=== PATIENT | male | born 1985 | race Caucasian/White ===

== ENCOUNTER 2017-07-12 16:39 | Emergency (ER) | payer SELFPAY ==
[~2017-07-12] VITALS: Ht 165.1 cm; Wt 65.0 kg
[2017-07-12 18:20] LABS: CHLORIDE 109 mEq/L (98-107)
[2017-07-12 18:21] LABS: BASOPHILS % 0.3 % (0.0-2.0); HEMATOCRIT. 44.1 % (42.0-52.0); HEMOGLOBIN. 15.4 g/dL (14.0-18.0); LYMPHOCYTES % 28.6 % (20.0-50.0); MEAN CORPUSCULAR HEMOGLOBIN 33.1 pg (28.0-32.0); MEAN CORPUSCULAR VOLUME 94.9 fL (80.0-94.0); MEAN PLATELET VOLUME 9.2 fl (7.4-10.4); MONOCYTES % 7.8 % (2.0-8.0); NEUTROPHILS % 59.3 % (40.0-76.0); PLATELET 198 x1000/uL (130-400); RED BLOOD CELL COUNT 4.65 mill/uL (4.7-6.1); RED CELL DISTRIBUTION WIDTH 13.4 % (11.6-14.6)
[2017-07-12 18:26] LABS: ETHANOL BLOOD 215 mg/dL
[2017-07-12 20:09] LABS: CLARITY URINE CLEAR (CLEAR); COLOR URINE YELLOW (YELLOW); KETONES URINE TRACE (NEGATIVE); LEUKOCYTE ESTERASE URINE NEGATIVE (NEGATIVE); NITRITE URINE NEGATIVE (NEGATIVE); OCCULT BLOOD URINE NEGATIVE (NEGATIVE); PROTEIN URINE NEGATIVE (NEGATIVE); SPECIFIC GRAVITY URINE 1.012 (1.005-1.030); UROBILINOGEN URINE 0.2 E.U./dL (0.2-1.0)
[2017-07-12] MEDS ORDERED: SODIUM CHLORIDE 0.9% 1,000 ML IV ONE (20:46)
[2017-07-12 22:33] LABS: *BARBITURATES SCREEN URINE NEGATIVE (NEGATIVE)
[2017-07-12 22:34] LABS: *BENZODIAZEPINES SCREEN URINE NEGATIVE (NEGATIVE); METHADONE URINE SCREEN NEGATIVE (NEGATIVE)
[2017-07-12 22:35] LABS: *AMPHETAMINES SCREEN URINE PRESUMTIVE POSITIVE (NEGATIVE); CANNABINOID URINE SCREEN NEGATIVE (NEGATIVE); OPIATES URINE SCREEN NEGATIVE (NEGATIVE); PHENCYCLIDINE URINE SCREEN NEGATIVE (NEGATIVE)
[2017-07-12 22:43] LABS: *COCAINE SCREEN URINE NEGATIVE (NEGATIVE)
[2017-07-13 03:32] VITALS: BP 112/62
== END 2017-07-13 03:35 | disposition home or self-care (01) ==
LOC: ER 16:47
DX: F10.129 Alcohol abuse with intoxication, unspecified (principal); F41.0 Panic disorder [episodic paroxysmal anxiety]; F15.10 Other stimulant abuse, uncomplicated
CPT/HCPCS: 36415; 80053; 80305; 80307; 80329; 81003; 85025; 93005; 96360; 96361; 99285; G0482; J7030

== ENCOUNTER 2020-07-11 20:29 | Emergency (ER) | payer MEDICAID ==
[~2020-07-11] VITALS: Ht 157.5 cm; Wt 73.0 kg
[2020-07-11 21:42] LABS: CLARITY URINE CLEAR (CLEAR); COLOR URINE YELLOW (YELLOW); KETONES URINE NEGATIVE (NEGATIVE); LEUKOCYTE ESTERASE URINE NEGATIVE (NEGATIVE); NITRITE URINE NEGATIVE (NEGATIVE); OCCULT BLOOD URINE NEGATIVE (NEGATIVE); PROTEIN URINE NEGATIVE (NEGATIVE); SPECIFIC GRAVITY URINE 1.013 (1.005-1.030); UROBILINOGEN URINE 0.2 E.U./dL (0.2-1.0)
[2020-07-11 21:48] LABS: BASOPHILS % 0.6 % (0.0-2.0); EOSINOPHILS % 2.6 % (0.0-5.0); HEMATOCRIT. 45.4 % (42.0-52.0); HEMOGLOBIN. 15.8 g/dL (14.0-18.0); LYMPHOCYTES % 41.9 % (20.0-50.0); MEAN CORPUSCULAR HEMOGLOBIN 33.9 pg (28.0-32.0); MEAN CORPUSCULAR VOLUME 97.2 fL (80.0-94.0); MEAN PLATELET VOLUME 8.5 fl (7.4-10.4); MONOCYTES % 7.3 % (2.0-8.0); NEUTROPHILS % 47.6 % (40.0-76.0); PLATELET 158 x1000/uL (130-400); RED BLOOD CELL COUNT 4.67 mill/uL (4.7-6.1); RED CELL DISTRIBUTION WIDTH 13.3 % (11.6-14.6)
[2020-07-11 21:53] LABS: *AMPHETAMINES SCREEN URINE NEGATIVE (NEGATIVE); *BARBITURATES SCREEN URINE NEGATIVE (NEGATIVE); *BENZODIAZEPINES SCREEN URINE NEGATIVE (NEGATIVE); *COCAINE SCREEN URINE NEGATIVE (NEGATIVE); METHADONE URINE SCREEN NEGATIVE (NEGATIVE)
[2020-07-11 21:54] LABS: CANNABINOID URINE SCREEN NEGATIVE (NEGATIVE); OPIATES URINE SCREEN NEGATIVE (NEGATIVE); PHENCYCLIDINE URINE SCREEN NEGATIVE (NEGATIVE)
[2020-07-11 21:55] LABS: CHLORIDE 106 mEq/L (98-107)
[2020-07-11 21:59] LABS: ETHANOL BLOOD 157 mg/dL
[2020-07-12 01:04] VITALS: BP 124/80
== END 2020-07-12 01:07 | disposition home or self-care (01) ==
LOC: ER 20:29
DX: R44.0 Auditory hallucinations (principal); F14.10 Cocaine abuse, uncomplicated; F15.10 Other stimulant abuse, uncomplicated
CPT/HCPCS: 36415; 80053; 80305; 80320; 81003; 85025; 99283; G0480

== ENCOUNTER 2020-07-17 20:02 | Emergency (ER) | payer MEDICAID ==
[~2020-07-17] VITALS: Ht 157.5 cm; Wt 71.1 kg
[2020-07-17 20:38] LABS: CLARITY URINE CLEAR (CLEAR); COLOR URINE YELLOW (YELLOW); KETONES URINE NEGATIVE (NEGATIVE); LEUKOCYTE ESTERASE URINE NEGATIVE (NEGATIVE); NITRITE URINE NEGATIVE (NEGATIVE); OCCULT BLOOD URINE NEGATIVE (NEGATIVE); PH URINE 6.5 (4.5-8.0); PROTEIN URINE NEGATIVE (NEGATIVE); SPECIFIC GRAVITY URINE 1.005 (1.005-1.030); UROBILINOGEN URINE 0.2 E.U./dL (0.2-1.0)
[2020-07-17 23:12] LABS: BASOPHILS % 0.6 % (0.0-2.0); EOSINOPHILS % 2.4 % (0.0-5.0); HEMATOCRIT. 45.3 % (42.0-52.0); HEMOGLOBIN. 15.4 g/dL (14.0-18.0); LYMPHOCYTES % 27.1 % (20.0-50.0); MEAN CORPUSCULAR HEMOGLOBIN 33.6 pg (28.0-32.0); MEAN CORPUSCULAR VOLUME 98.9 fL (80.0-94.0); MEAN PLATELET VOLUME 8.9 fl (7.4-10.4); MONOCYTES % 7.3 % (2.0-8.0); NEUTROPHILS % 62.6 % (40.0-76.0); PLATELET 148 x1000/uL (130-400); RED BLOOD CELL COUNT 4.58 mill/uL (4.7-6.1); RED CELL DISTRIBUTION WIDTH 13.5 % (11.6-14.6)
[2020-07-17 23:18] LABS: CHLORIDE 107 mEq/L (98-107)
[2020-07-17] MEDS ORDERED: FAMO-135 PO (23:38)
[2020-07-18 00:25] VITALS: BP 125/76
== END 2020-07-18 00:28 | disposition home or self-care (01) ==
LOC: ER 20:02
DX: R10.31 Right lower quadrant pain (principal); K14.8 Other diseases of tongue; F14.10 Cocaine abuse, uncomplicated; F15.10 Other stimulant abuse, uncomplicated
CPT/HCPCS: 36415; 80053; 81003; 85025; 93005; 99284

== ENCOUNTER 2020-08-19 02:09 | Emergency (ER) | payer MEDICAID ==
[~2020-08-19] VITALS: Ht 167.6 cm; Wt 73.0 kg
[~2020-08-19 02:09] MED LIST: FAMO-135 PO
[2020-08-19 04:12] VITALS: BP 138/95
== END 2020-08-19 04:12 | disposition home or self-care (01) ==
LOC: ER 02:09
DX: F10.129 Alcohol abuse with intoxication, unspecified (principal); R10.9 Unspecified abdominal pain; Y90.9 Presence of alcohol in blood, level not specified
CPT/HCPCS: 99281

== ENCOUNTER 2020-09-17 22:36 | Emergency (ER) | payer SELFPAY ==
[~2020-09-17] VITALS: Ht 160 cm; Wt 66.0 kg
[2020-09-17 23:23] VITALS: BP 145/85
== END 2020-09-18 03:16 | disposition left against medical advice (07) ==
LOC: ER 22:36
DX: Z53.21 Procedure and treatment not carried out due to patient leaving prior to being seen by health care provider (principal)

== ENCOUNTER 2021-08-22 00:41 | Emergency (ER) | payer MEDICAID ==
[~2021-08-22] VITALS: Ht 160 cm; Wt 79.0 kg
[2021-08-22 01:30] LABS: BASOPHILS % 0.6 % (0.0-2.0); EOSINOPHILS % 1.6 % (0.0-5.0); HEMATOCRIT. 45.8 % (42.0-52.0); HEMOGLOBIN. 15.9 g/dL (14.0-18.0); LYMPHOCYTES % 32.9 % (20.0-50.0); MEAN CORPUSCULAR VOLUME 98.3 fL (80.0-94.0); MEAN PLATELET VOLUME 8.6 fl (7.4-10.4); MONOCYTES % 8.7 % (2.0-8.0); NEUTROPHILS % 56.2 % (40.0-76.0); PLATELET 143 x1000/uL (130-400); RED BLOOD CELL COUNT 4.66 mill/uL (4.7-6.1); RED CELL DISTRIBUTION WIDTH 13.5 % (11.6-14.6)
[2021-08-22 01:35] LABS: CHLORIDE 109 mEq/L (98-107)
[2021-08-22 01:47] LABS: ETHANOL BLOOD 283 mg/dL
[2021-08-22 02:22] LABS: *AMPHETAMINES SCREEN URINE NEGATIVE (NEGATIVE); *BARBITURATES SCREEN URINE NEGATIVE (NEGATIVE); *BENZODIAZEPINES SCREEN URINE NEGATIVE (NEGATIVE); *COCAINE SCREEN URINE NEGATIVE (NEGATIVE); CANNABINOID URINE SCREEN NEGATIVE (NEGATIVE); METHADONE URINE SCREEN NEGATIVE (NEGATIVE); OPIATES URINE SCREEN NEGATIVE (NEGATIVE); PHENCYCLIDINE URINE SCREEN NEGATIVE (NEGATIVE)
[2021-08-22 04:40] VITALS: BP 128/71
[2021-08-23] MEDS ORDERED: CEPH500C2 MT (06:18)
[2021-08-23] MEDS ORDERED: MED4 MT (06:20)
== END 2021-08-22 04:41 | disposition home or self-care (01) ==
LOC: ER 00:41
DX: F10.229 Alcohol dependence with intoxication, unspecified (principal); F15.10 Other stimulant abuse, uncomplicated; F41.9 Anxiety disorder, unspecified; Y90.8 Blood alcohol level of 240 mg/100 ml or more
CPT/HCPCS: 36415; 80053; 80305; 80307; 80320; 80329; 85025; 99283; G0480

== ENCOUNTER 2021-08-23 04:36 | Emergency (ER) | payer MEDICAID ==
[~2021-08-23] VITALS: Ht 160 cm; Wt 66.2 kg
[2021-08-23] MEDS ORDERED: CEPH500C2 MT (06:18)
[2021-08-23] MEDS ORDERED: MED4 MT (06:20)
[2021-08-23 06:30] VITALS: BP 123/78
== END 2021-08-23 06:38 | disposition home or self-care (01) ==
LOC: ER 04:36
DX: K12.2 Cellulitis and abscess of mouth (principal); F41.9 Anxiety disorder, unspecified; F15.10 Other stimulant abuse, uncomplicated; F10.21 Alcohol dependence, in remission
CPT/HCPCS: 99283

== ENCOUNTER 2021-08-24 03:04 | Emergency (ER) | payer MEDICAID ==
[~2021-08-24] VITALS: Ht 154.9 cm; Wt 67.0 kg
[~2021-08-24 03:04] MED LIST changes: +CEPH500C2 MT; +MED4 MT
[2021-08-24] MEDS ORDERED: IBUPROFEN 600MG TABLET PO ONE (03:45)
[2021-08-24 05:45] VITALS: BP 135/79
== END 2021-08-24 05:45 | disposition home or self-care (01) ==
LOC: ER 03:04
DX: M54.9 Dorsalgia, unspecified (principal); F15.10 Other stimulant abuse, uncomplicated
CPT/HCPCS: 99282

== ENCOUNTER 2021-08-28 | Emergency (ER) | payer MEDICAID ==
[~2021-08-28] VITALS: Ht 170.2 cm; Wt 82.0 kg
[2021-08-28 00:13] VITALS: BP 131/82
[2021-08-28] MEDS ORDERED: ACETAMINOPHEN 500MG TABLET PO ONE (00:15)
== END 2021-08-28 00:43 | disposition home or self-care (01) ==
LOC: ER 00:22
DX: G89.29 Other chronic pain (principal); M54.9 Dorsalgia, unspecified; F10.129 Alcohol abuse with intoxication, unspecified; F15.10 Other stimulant abuse, uncomplicated; Z98.890 Other specified postprocedural states; Y90.9 Presence of alcohol in blood, level not specified
CPT/HCPCS: 99283

== ENCOUNTER 2021-09-04 23:30 | Emergency (ER) | payer MEDICAID ==
[~2021-09-04] VITALS: Ht 157.5 cm; Wt 60.0 kg
[2021-09-05 01:05] LABS: BASOPHILS % 0.6 % (0.0-2.0); HEMATOCRIT. 45.4 % (42.0-52.0); HEMOGLOBIN. 15.4 g/dL (14.0-18.0); LYMPHOCYTES % 26.3 % (20.0-50.0); MEAN CORPUSCULAR HEMOGLOBIN 33.8 pg (28.0-32.0); MEAN CORPUSCULAR VOLUME 99.8 fL (80.0-94.0); MEAN PLATELET VOLUME 8.6 fl (7.4-10.4); MONOCYTES % 6.9 % (2.0-8.0); NEUTROPHILS % 62.2 % (40.0-76.0); PLATELET 119 x1000/uL (130-400); RED BLOOD CELL COUNT 4.55 mill/uL (4.7-6.1); RED CELL DISTRIBUTION WIDTH 13.8 % (11.6-14.6)
[2021-09-05 01:13] LABS: CHLORIDE 108 mEq/L (98-107)
[2021-09-05 01:21] LABS: *AMPHETAMINES SCREEN URINE NEGATIVE (NEGATIVE); *BARBITURATES SCREEN URINE NEGATIVE (NEGATIVE); *BENZODIAZEPINES SCREEN URINE NEGATIVE (NEGATIVE); *COCAINE SCREEN URINE NEGATIVE (NEGATIVE); CANNABINOID URINE SCREEN NEGATIVE (NEGATIVE); METHADONE URINE SCREEN NEGATIVE (NEGATIVE); OPIATES URINE SCREEN NEGATIVE (NEGATIVE); PHENCYCLIDINE URINE SCREEN NEGATIVE (NEGATIVE)
[2021-09-05 03:56] LABS: ETHANOL BLOOD 340 mg/dL
[2021-09-05 06:03] VITALS: BP 121/85
== END 2021-09-05 06:15 | disposition home or self-care (01) ==
LOC: ER 23:30
DX: F10.129 Alcohol abuse with intoxication, unspecified (principal); R44.0 Auditory hallucinations; F41.9 Anxiety disorder, unspecified; F15.10 Other stimulant abuse, uncomplicated; F10.10 Alcohol abuse, uncomplicated; Y90.8 Blood alcohol level of 240 mg/100 ml or more
CPT/HCPCS: 36415; 80053; 80305; 80307; 80320; 80329; 85025; 93005; 99284; G0480

== ENCOUNTER 2021-09-06 00:32 | Emergency (ER) | payer MEDICAID ==
[~2021-09-06] VITALS: Ht 165.1 cm; Wt 63.0 kg
[2021-09-06 00:37] VITALS: BP 138/84
== END 2021-09-06 06:35 | disposition left against medical advice (07) ==
LOC: ER 00:32
DX: Z53.21 Procedure and treatment not carried out due to patient leaving prior to being seen by health care provider (principal)

== ENCOUNTER 2021-09-21 01:19 | Emergency (ER) | payer MEDICAID ==
[~2021-09-21] VITALS: Ht 160 cm; Wt 59.0 kg
[2021-09-21 01:22] VITALS: BP 162/84
== END 2021-09-21 06:40 | disposition left against medical advice (07) ==
LOC: ER 01:32
DX: Z53.21 Procedure and treatment not carried out due to patient leaving prior to being seen by health care provider (principal)

== ENCOUNTER 2021-09-23 00:07 | Emergency (ER) | payer MEDICAID ==
[~2021-09-23] VITALS: Ht 162.6 cm; Wt 71.0 kg
[2021-09-23 03:01] LABS: BASOPHILS % 0.9 % (0.0-2.0); EOSINOPHILS % 6.1 % (0.0-5.0); HEMATOCRIT. 45.4 % (42.0-52.0); HEMOGLOBIN. 15.5 g/dL (14.0-18.0); LYMPHOCYTES % 32.4 % (20.0-50.0); MEAN CORPUSCULAR HEMOGLOBIN 33.9 pg (28.0-32.0); MEAN CORPUSCULAR VOLUME 99.7 fL (80.0-94.0); MEAN PLATELET VOLUME 8.6 fl (7.4-10.4); MONOCYTES % 7.7 % (2.0-8.0); NEUTROPHILS % 52.9 % (40.0-76.0); PLATELET 174 x1000/uL (130-400); RED BLOOD CELL COUNT 4.55 mill/uL (4.7-6.1); RED CELL DISTRIBUTION WIDTH 13.5 % (11.6-14.6)
[2021-09-23 03:16] LABS: CHLORIDE 108 mEq/L (98-107)
[2021-09-23 03:21] LABS: ETHANOL BLOOD 257 mg/dL
[2021-09-23 03:28] LABS: *AMPHETAMINES SCREEN URINE NEGATIVE (NEGATIVE); *BARBITURATES SCREEN URINE NEGATIVE (NEGATIVE); *BENZODIAZEPINES SCREEN URINE NEGATIVE (NEGATIVE); *COCAINE SCREEN URINE NEGATIVE (NEGATIVE); CANNABINOID URINE SCREEN NEGATIVE (NEGATIVE); METHADONE URINE SCREEN NEGATIVE (NEGATIVE); OPIATES URINE SCREEN NEGATIVE (NEGATIVE); PHENCYCLIDINE URINE SCREEN NEGATIVE (NEGATIVE)
[2021-09-23 06:00] VITALS: BP 130/69
== END 2021-09-23 06:20 | disposition home or self-care (01) ==
LOC: ER 00:07
DX: R44.0 Auditory hallucinations (principal); F15.10 Other stimulant abuse, uncomplicated; I10 Essential (primary) hypertension; Z79.899 Other long term (current) drug therapy
CPT/HCPCS: 36415; 80053; 80305; 80307; 80320; 80329; 85025; 93005; 99285; G0480

== ENCOUNTER 2021-09-26 01:31 | Emergency (ER) | payer MEDICAID ==
[~2021-09-26] VITALS: Ht 165.1 cm; Wt 73.0 kg
[2021-09-26 01:55] VITALS: BP 133/78
== END 2021-09-26 02:09 | disposition home or self-care (01) ==
LOC: ER 01:53
DX: R44.0 Auditory hallucinations (principal); F15.10 Other stimulant abuse, uncomplicated; F10.10 Alcohol abuse, uncomplicated; Y90.9 Presence of alcohol in blood, level not specified; Z91.14 Patient's other noncompliance with medication regimen
CPT/HCPCS: 99283

== ENCOUNTER 2021-10-02 00:05 | Emergency (ER) | payer MEDICAID | END 2021-10-02 00:37 | disposition left against medical advice (07) | LOC: ER 00:05 | DX: Z53.21 Procedure and treatment not carried out due to patient leaving prior to being seen by health care provider (principal) ==

== ENCOUNTER 2021-10-06 01:27 | Emergency (ER) | payer MEDICAID ==
[~2021-10-06] VITALS: Ht 165.1 cm; Wt 73.0 kg
[2021-10-06 01:54] VITALS: BP 134/62
== END 2021-10-06 06:33 | disposition home or self-care (01) ==
LOC: ER 01:27
DX: F10.229 Alcohol dependence with intoxication, unspecified (principal); R44.3 Hallucinations, unspecified; F15.10 Other stimulant abuse, uncomplicated; Y90.9 Presence of alcohol in blood, level not specified
CPT/HCPCS: 99283

== ENCOUNTER 2021-10-24 00:31 | Emergency (ER) | payer MEDICAID ==
[~2021-10-24] VITALS: Ht 167.6 cm; Wt 78.0 kg
[2021-10-24 01:28] LABS: EOSINOPHILS % 3.5 % (0.0-5.0); HEMATOCRIT. 42.6 % (42.0-52.0); HEMOGLOBIN. 14.3 g/dL (14.0-18.0); LYMPHOCYTES % 27.9 % (20.0-50.0); MEAN CORPUSCULAR HEMOGLOBIN 34.2 pg (28.0-32.0); MEAN CORPUSCULAR VOLUME 101.7 fL (80.0-94.0); MEAN PLATELET VOLUME 8.8 fl (7.4-10.4); MONOCYTES % 11.2 % (2.0-8.0); NEUTROPHILS % 56.4 % (40.0-76.0); PLATELET 76 x1000/uL (130-400); RED BLOOD CELL COUNT 4.19 mill/uL (4.7-6.1); RED CELL DISTRIBUTION WIDTH 13.7 % (11.6-14.6)
[2021-10-24 02:02] LABS: CHLORIDE 108 mEq/L (98-107)
[2021-10-24 02:22] LABS: ETHANOL BLOOD 350 mg/dL
[2021-10-24 02:48] LABS: CLARITY URINE CLEAR (CLEAR); COLOR URINE YELLOW (YELLOW); KETONES URINE NEGATIVE (NEGATIVE); LEUKOCYTE ESTERASE URINE NEGATIVE (NEGATIVE); NITRITE URINE NEGATIVE (NEGATIVE); OCCULT BLOOD URINE NEGATIVE (NEGATIVE); PH URINE 6.5 (4.5-8.0); PROTEIN URINE NEGATIVE (NEGATIVE); SPECIFIC GRAVITY URINE 1.008 (1.005-1.030); UROBILINOGEN URINE 0.2 E.U./dL (0.2-1.0)
[2021-10-24 03:15] LABS: *AMPHETAMINES SCREEN URINE NEGATIVE (NEGATIVE); *BARBITURATES SCREEN URINE NEGATIVE (NEGATIVE); *BENZODIAZEPINES SCREEN URINE NEGATIVE (NEGATIVE); *COCAINE SCREEN URINE NEGATIVE (NEGATIVE); CANNABINOID URINE SCREEN NEGATIVE (NEGATIVE); METHADONE URINE SCREEN NEGATIVE (NEGATIVE); OPIATES URINE SCREEN NEGATIVE (NEGATIVE); PHENCYCLIDINE URINE SCREEN NEGATIVE (NEGATIVE)
[2021-10-24 04:30] VITALS: BP 117/59
== END 2021-10-24 05:44 | disposition home or self-care (01) ==
LOC: ER 00:31
DX: F10.229 Alcohol dependence with intoxication, unspecified (principal); F15.10 Other stimulant abuse, uncomplicated; Y90.8 Blood alcohol level of 240 mg/100 ml or more
CPT/HCPCS: 36415; 80053; 80305; 80320; 81003; 85025; 99283; G0480

== ENCOUNTER 2021-10-24 23:02 | Emergency (ER) | payer MEDICAID ==
[~2021-10-24] VITALS: Ht 154.9 cm; Wt 68.0 kg
[2021-10-24 23:04] VITALS: BP 157/92
== END 2021-10-25 00:05 | disposition left against medical advice (07) ==
LOC: ER 23:02
DX: Z53.21 Procedure and treatment not carried out due to patient leaving prior to being seen by health care provider (principal)

== ENCOUNTER 2021-10-26 22:56 | Emergency (ER) | payer MEDICAID ==
[~2021-10-26] VITALS: Ht 160 cm; Wt 71.0 kg
[2021-10-26 23:36] VITALS: BP 135/82
== END 2021-10-27 01:00 | disposition left against medical advice (07) ==
LOC: ER 22:56
DX: Z53.21 Procedure and treatment not carried out due to patient leaving prior to being seen by health care provider (principal)

== ENCOUNTER 2021-12-31 18:05 | Emergency (ER) | payer MEDICAID ==
[~2021-12-31] VITALS: Ht 160 cm; Wt 68.0 kg
[2021-12-31 18:11] VITALS: BP 133/89
[2021-12-31] MEDS ORDERED: LORA-985 MT (22:51)
== END 2021-12-31 23:30 | disposition home or self-care (01) ==
LOC: ER 18:05
DX: L29.9 Pruritus, unspecified (principal); K70.9 Alcoholic liver disease, unspecified; F10.20 Alcohol dependence, uncomplicated; Y90.9 Presence of alcohol in blood, level not specified
CPT/HCPCS: 99281; 99282

== ENCOUNTER 2022-03-03 04:53 | Emergency (ER) | payer MEDICAID ==
[~2022-03-03] VITALS: Ht 160 cm; Wt 64.5 kg
[~2022-03-03 04:53] MED LIST changes: +LORA-985 MT
[2022-03-03] MEDS ORDERED: PANTOPRAZOLE SODIUM 40 MG/VIAL IV STA ×2 (06:42→09:50)
[2022-03-03] MEDS ORDERED: DEXT 5%/0.9% NACL 1,000 ML IV ONE (06:45)
[2022-03-03] MEDS ORDERED: ONDANSETRON HCL 4MG/2ML INJ IV ONE ×2 (06:45→09:50)
[2022-03-03] MEDS ORDERED: LORAZEPAM 2MG/ML CPJ IV ONE ×2 (06:45→09:50)
[2022-03-03 08:36] LABS: CLARITY URINE CLEAR (CLEAR); COLOR URINE YELLOW (YELLOW); KETONES URINE NEGATIVE (NEGATIVE); LEUKOCYTE ESTERASE URINE NEGATIVE (NEGATIVE); NITRITE URINE NEGATIVE (NEGATIVE); OCCULT BLOOD URINE NEGATIVE (NEGATIVE); PROTEIN URINE NEGATIVE (NEGATIVE); SPECIFIC GRAVITY URINE 1.012 (1.005-1.030); UROBILINOGEN URINE 0.2 E.U./dL (0.2-1.0)
[2022-03-03 09:54] LABS: BASOPHILS % 0.7 % (0.0-2.0); EOSINOPHILS % 0.6 % (0.0-5.0); HEMATOCRIT. 44.3 % (42.0-52.0); HEMOGLOBIN. 15.3 g/dL (14.0-18.0); LYMPHOCYTES % 15.2 % (20.0-50.0); MEAN CORPUSCULAR HEMOGLOBIN 35.1 pg (28.0-32.0); MEAN CORPUSCULAR VOLUME 101.4 fL (80.0-94.0); MEAN PLATELET VOLUME 8.6 fl (7.4-10.4); MONOCYTES % 7.9 % (2.0-8.0); NEUTROPHILS % 75.6 % (40.0-76.0); PLATELET 79 x1000/uL (130-400); RED BLOOD CELL COUNT 4.37 mill/uL (4.7-6.1); RED CELL DISTRIBUTION WIDTH 12.9 % (11.6-14.6)
[2022-03-03 10:11] LABS: PROTHROMBIN TIME 10.8 sec (9.6-11.0)
[2022-03-03 10:18] LABS: CHLORIDE 103 mEq/L (98-107)
[2022-03-03 10:34] LABS: ETHANOL BLOOD 165 mg/dL
[2022-03-03 12:09] VITALS: BP 127/86
[2022-03-05] MEDS ORDERED: BACL-141 MT (03:29)
== END 2022-03-03 12:11 | disposition home or self-care (01) ==
LOC: ER 04:53
DX: R10.32 Left lower quadrant pain (principal); Z91.013 Allergy to seafood; Z98.890 Other specified postprocedural states
CPT/HCPCS: 36415; 71045; 74176; 80053; 80320; 81003; 83690; 85025; 85610; 96374; 96375; 99285; C9113; J2060; J2405; J7042; Z7610; G0480

== ENCOUNTER 2022-03-05 16:13 | Emergency (ER) | payer MEDICAID ==
[~2022-03-05] VITALS: Ht 165.1 cm; Wt 70.0 kg
[~2022-03-05 16:13] MED LIST changes: +BACL-141 MT
[2022-03-05] MEDS ORDERED: KETOROLAC 30MG/ML VIAL IM NR (18:36)
[2022-03-05 19:03] LABS: BASOPHILS % 1.2 % (0.0-2.0); EOSINOPHILS % 0.9 % (0.0-5.0); HEMATOCRIT. 44.1 % (42.0-52.0); HEMOGLOBIN. 15.1 g/dL (14.0-18.0); LYMPHOCYTES % 21.7 % (20.0-50.0); MEAN CORPUSCULAR HEMOGLOBIN 34.9 pg (28.0-32.0); MEAN CORPUSCULAR VOLUME 102.4 fL (80.0-94.0); MEAN PLATELET VOLUME 8.4 fl (7.4-10.4); MONOCYTES % 7.9 % (2.0-8.0); NEUTROPHILS % 68.3 % (40.0-76.0); PLATELET 92 x1000/uL (130-400); RED BLOOD CELL COUNT 4.31 mill/uL (4.7-6.1); RED CELL DISTRIBUTION WIDTH 12.9 % (11.6-14.6)
[2022-03-05 19:15] LABS: CHLORIDE 104 mEq/L (98-107)
[2022-03-05] MEDS ORDERED: ASPIRIN 81MG TABLET PO ONE (19:15)
[2022-03-05 20:36] VITALS: BP 146/80
== END 2022-03-05 21:38 | disposition home or self-care (01) ==
LOC: ER 16:13
DX: R07.89 Other chest pain (principal)
CPT/HCPCS: 36415; 71045; 80053; 84484; 85025; 93005; 96372; 99285; J1885; Z7610

== ENCOUNTER 2022-03-06 10:04 | Emergency (ER) | payer MEDICAID ==
[~2022-03-06] VITALS: Ht 165.1 cm; Wt 68.0 kg
[2022-03-06] MEDS ORDERED: NITROGLYCERIN 0.4MG TABLET SL SL PRN (13:15)
[2022-03-06] MEDS ORDERED: ASPIRIN 81MG TABLET PO ONE (13:15)
[2022-03-06 13:53] LABS: BASOPHILS % 0.7 % (0.0-2.0); CHLORIDE 102 mEq/L (98-107); HEMATOCRIT. 42.9 % (42.0-52.0); HEMOGLOBIN. 14.7 g/dL (14.0-18.0); LYMPHOCYTES % 11.9 % (20.0-50.0); MEAN CORPUSCULAR HEMOGLOBIN 34.8 pg (28.0-32.0); MEAN CORPUSCULAR VOLUME 101.6 fL (80.0-94.0); MONOCYTES % 8.4 % (2.0-8.0); RED BLOOD CELL COUNT 4.22 mill/uL (4.7-6.1); RED CELL DISTRIBUTION WIDTH 12.9 % (11.6-14.6)
[2022-03-06 14:07] LABS: ETHANOL BLOOD 158 mg/dL
[2022-03-06 14:09] LABS: PLATELET 83 x1000/uL (130-400)
[2022-03-06 15:22] VITALS: BP 112/59
== END 2022-03-06 15:29 | disposition home or self-care (01) ==
LOC: ER 10:04
DX: R07.89 Other chest pain (principal); D69.6 Thrombocytopenia, unspecified; F15.10 Other stimulant abuse, uncomplicated; K70.10 Alcoholic hepatitis without ascites; F10.20 Alcohol dependence, uncomplicated; Y90.6 Blood alcohol level of 120-199 mg/100 ml; F32.A Depression, unspecified; Z87.828 Personal history of other (healed) physical injury and trauma; Z98.890 Other specified postprocedural states; Z91.013 Allergy to seafood
CPT/HCPCS: 36415; 71045; 80053; 80320; 84484; 85025; 85379; 93005; 99285; Z7610; G0480

== ENCOUNTER 2022-03-08 19:06 | Emergency (ER) | payer MEDICAID ==
[~2022-03-08] VITALS: Ht 157.5 cm; Wt 62.7 kg
[2022-03-09 01:28] VITALS: BP 141/80
== END 2022-03-09 01:31 | disposition home or self-care (01) ==
LOC: ER 19:06
DX: R10.32 Left lower quadrant pain (principal); F10.21 Alcohol dependence, in remission; F15.10 Other stimulant abuse, uncomplicated; Z98.890 Other specified postprocedural states; Z87.828 Personal history of other (healed) physical injury and trauma; Z91.013 Allergy to seafood
CPT/HCPCS: 71045; 93005; 99283

== ENCOUNTER 2022-03-12 12:43 | Emergency (ER) | payer MEDICAID ==
[~2022-03-12] VITALS: Ht 157.5 cm; Wt 70.0 kg
[2022-03-12 12:50] VITALS: BP 143/70
== END 2022-03-12 17:47 | disposition left against medical advice (07) ==
LOC: ER 12:43
DX: Z53.21 Procedure and treatment not carried out due to patient leaving prior to being seen by health care provider (principal); I49.9 Cardiac arrhythmia, unspecified
CPT/HCPCS: 93005; Z7610

== ENCOUNTER 2022-03-18 19:30 | Emergency (ER) | payer MEDICAID ==
[~2022-03-18] VITALS: Ht 160 cm; Wt 62.5 kg
[2022-03-18 19:42] VITALS: BP 132/85
[2022-03-19] MEDS ORDERED: ASPIRIN 81MG TABLET PO ONE (08:30)
== END 2022-03-18 23:39 | disposition home or self-care (01) ==
LOC: ER 19:30
DX: R07.2 Precordial pain (principal); M79.602 Pain in left arm; R94.31 Abnormal electrocardiogram [ECG] [EKG]
CPT/HCPCS: 93005; 99283

== ENCOUNTER 2022-03-20 00:10 | Emergency (ER) | payer MEDICAID ==
[~2022-03-20] VITALS: Ht 160 cm; Wt 63.5 kg
[2022-03-20 00:16] VITALS: BP 136/89
== END 2022-03-20 05:32 | disposition left against medical advice (07) ==
LOC: ER 00:23
DX: Z53.21 Procedure and treatment not carried out due to patient leaving prior to being seen by health care provider (principal)
CPT/HCPCS: 93005

== ENCOUNTER 2022-03-22 18:25 | Emergency (ER) | payer MEDICAID ==
[~2022-03-22] VITALS: Ht 162.6 cm; Wt 69.0 kg
[2022-03-22] MEDS ORDERED: ASPIRIN 325MG EC TABLET PO ONE (22:00)
[2022-03-22 22:16] VITALS: BP 126/72
== END 2022-03-22 22:18 | disposition home or self-care (01) ==
LOC: ER 18:25
DX: R07.89 Other chest pain (principal); R51.9 Headache, unspecified; F10.20 Alcohol dependence, uncomplicated; F15.10 Other stimulant abuse, uncomplicated; Z79.899 Other long term (current) drug therapy
CPT/HCPCS: 93005; 99283

== ENCOUNTER 2022-03-23 01:50 | Emergency (ER) | payer MEDICAID ==
[~2022-03-23] VITALS: Ht 157.5 cm; Wt 68.0 kg
[2022-03-23 02:02] VITALS: BP 131/63
== END 2022-03-23 05:16 | disposition left against medical advice (07) ==
LOC: ER 01:50
DX: R07.89 Other chest pain (principal); F15.10 Other stimulant abuse, uncomplicated; F10.21 Alcohol dependence, in remission; Z91.013 Allergy to seafood
CPT/HCPCS: 93005; 99283

== ENCOUNTER 2022-04-05 02:35 | Emergency (ER) | payer MEDICAID ==
[~2022-04-05] VITALS: Ht 157.5 cm; Wt 63.8 kg
[2022-04-05 02:52] VITALS: BP 123/92
== END 2022-04-05 05:47 | disposition home or self-care (01) ==
LOC: ER 02:35
DX: R00.2 Palpitations (principal); F15.10 Other stimulant abuse, uncomplicated; Z91.013 Allergy to seafood
CPT/HCPCS: 93005; 99283

== ENCOUNTER 2022-04-07 20:17 | Emergency (ER) | payer MEDICAID ==
[~2022-04-07] VITALS: Ht 162.6 cm; Wt 80.0 kg
[2022-04-07 20:28] VITALS: BP 142/91
[2022-04-07] MEDS ORDERED: ASPIRIN 325MG EC TABLET PO ONE (21:00)
== END 2022-04-07 21:13 | disposition home or self-care (01) ==
LOC: ER 20:17
DX: R07.89 Other chest pain (principal); G89.29 Other chronic pain; F15.10 Other stimulant abuse, uncomplicated; F10.229 Alcohol dependence with intoxication, unspecified; Y90.0 Blood alcohol level of less than 20 mg/100 ml; Z79.899 Other long term (current) drug therapy
CPT/HCPCS: 93005; 99283

== ENCOUNTER 2022-04-07 22:02 | Emergency (ER) | payer MEDICAID ==
[~2022-04-07] VITALS: Ht 167.6 cm; Wt 70.0 kg
== END 2022-04-07 22:17 | disposition home or self-care (01) ==
LOC: ER 22:02
DX: R07.89 Other chest pain (principal); G89.29 Other chronic pain; F10.20 Alcohol dependence, uncomplicated; F15.10 Other stimulant abuse, uncomplicated; Z79.899 Other long term (current) drug therapy
CPT/HCPCS: 99281

== ENCOUNTER 2022-04-08 21:40 | Emergency (ER) | payer MEDICAID ==
[~2022-04-08] VITALS: Ht 165.1 cm; Wt 70.0 kg
[2022-04-08 21:59] VITALS: BP 125/82
== END 2022-04-08 22:29 | disposition home or self-care (01) ==
LOC: ER 21:40
DX: G89.29 Other chronic pain (principal); R07.89 Other chest pain; F10.21 Alcohol dependence, in remission; F15.10 Other stimulant abuse, uncomplicated; Z91.013 Allergy to seafood
CPT/HCPCS: 93005; 99283

== ENCOUNTER 2022-06-11 09:07 | Emergency (ER) | payer MEDICAID ==
[~2022-06-11] VITALS: Ht 157.5 cm; Wt 68.0 kg
[2022-06-11] MEDS ORDERED: IBUPROFEN 400MG TABLET PO ONE (09:30)
[2022-06-11] MEDS ORDERED: ACETAMINOPHEN 650MG/20.3ML UDC PO ONE (09:30)
[2022-06-11 10:42] LABS: BASOPHILS % 0.5 % (0.0-2.0); EOSINOPHILS % 2.9 % (0.0-5.0); HEMATOCRIT. 41.5 % (42.0-52.0); HEMOGLOBIN. 14.3 g/dL (14.0-18.0); LYMPHOCYTES % 18.3 % (20.0-50.0); MEAN CORPUSCULAR HEMOGLOBIN 35.9 pg (28.0-32.0); MEAN CORPUSCULAR VOLUME 104.4 fL (80.0-94.0); MEAN PLATELET VOLUME 8.9 fl (7.4-10.4); MONOCYTES % 7.5 % (2.0-8.0); NEUTROPHILS % 70.8 % (40.0-76.0); PLATELET 67 x1000/uL (130-400); RED BLOOD CELL COUNT 3.98 mill/uL (4.7-6.1); RED CELL DISTRIBUTION WIDTH 13.6 % (11.6-14.6)
[2022-06-11 10:48] LABS: CHLORIDE 107 mEq/L (98-107)
[2022-06-11 10:51] LABS: PROTHROMBIN TIME 10.3 sec (9.6-11.0)
[2022-06-11 10:56] LABS: CREATINE KINASE 731 IU/L (39-308); ETHANOL BLOOD 216 mg/dL
[2022-06-11] MEDS ORDERED: SODIUM CHLORIDE 0.9% 1,000 ML IV ONE (11:15)
[2022-06-11 12:28] LABS: CLARITY URINE CLEAR (CLEAR); COLOR URINE YELLOW (YELLOW); KETONES URINE NEGATIVE (NEGATIVE); LEUKOCYTE ESTERASE URINE NEGATIVE (NEGATIVE); NITRITE URINE NEGATIVE (NEGATIVE); OCCULT BLOOD URINE NEGATIVE (NEGATIVE); PH URINE 7.5 (4.5-8.0); PROTEIN URINE NEGATIVE (NEGATIVE); SPECIFIC GRAVITY URINE 1.007 (1.005-1.030); UROBILINOGEN URINE 0.2 E.U./dL (0.2-1.0)
[2022-06-11 13:30] VITALS: BP 130/81
[2022-06-11] MEDS ORDERED: TOPUD MT (14:24)
[2022-06-11] MEDS ORDERED: IOHEXOL-300 100 ML BOTTLE ONE (14:49)
== END 2022-06-11 15:13 | disposition home or self-care (01) ==
LOC: ER 09:07
DX: R07.89 Other chest pain (principal); R10.9 Unspecified abdominal pain; M79.602 Pain in left arm; F15.10 Other stimulant abuse, uncomplicated; Z98.890 Other specified postprocedural states; Z91.013 Allergy to seafood; W11.XXXA Fall on and from ladder, initial encounter; Y93.89 Activity, other specified; Y92.89 Other specified places as the place of occurrence of the external cause; Y99.8 Other external cause status
CPT/HCPCS: 36415; 71046; 73030; 73060; 73090; 73110; 74177; 80053; 80320; 81003; 82550; 84484; 85025; 85610; 86850; 86900; 86901; 96360; 99285; Q9967; G0480

== ENCOUNTER 2022-06-14 21:02 | Emergency (ER) | payer MEDICAID ==
[~2022-06-14] VITALS: Ht 154.9 cm; Wt 61.8 kg
[~2022-06-14 21:02] MED LIST changes: +TOPUD MT
[2022-06-14] MEDS ORDERED: IBUPROFEN 400MG TABLET PO ONE (22:30)
[2022-06-14] MEDS ORDERED: ACETAMINOPHEN 325MG TABLET PO ONE (22:30)
[2022-06-15] MEDS ORDERED: IBUP-2028 MT (00:03)
[2022-06-15 00:54] VITALS: BP 133/79
== END 2022-06-15 00:56 | disposition home or self-care (01) ==
LOC: ER 21:02
DX: R51.9 Headache, unspecified (principal); F12.10 Cannabis abuse, uncomplicated; K70.9 Alcoholic liver disease, unspecified; Z91.81 History of falling; Z91.013 Allergy to seafood
CPT/HCPCS: 99284

== ENCOUNTER 2022-06-20 22:55 | Emergency (ER) | payer MEDICAID ==
[~2022-06-20] VITALS: Ht 165.1 cm; Wt 68.0 kg
[~2022-06-20 22:55] MED LIST changes: +IBUP-2028 MT
[2022-06-20 23:00] VITALS: BP 155/89
[2022-06-20 23:26] LABS: BASOPHILS % 0.9 % (0.0-2.0); HEMATOCRIT. 45.7 % (42.0-52.0); LYMPHOCYTES % 37.2 % (20.0-50.0); MEAN CORPUSCULAR HEMOGLOBIN 36.2 pg (28.0-32.0); MEAN CORPUSCULAR VOLUME 103.4 fL (80.0-94.0); MEAN PLATELET VOLUME 8.1 fl (7.4-10.4); MONOCYTES % 11.2 % (2.0-8.0); NEUTROPHILS % 44.7 % (40.0-76.0); PLATELET 110 x1000/uL (130-400); RED BLOOD CELL COUNT 4.42 mill/uL (4.7-6.1); RED CELL DISTRIBUTION WIDTH 13.9 % (11.6-14.6)
[2022-06-20 23:39] LABS: CHLORIDE 110 mEq/L (98-107)
[2022-06-20 23:51] LABS: ETHANOL BLOOD 450 mg/dL
[2022-06-21] MEDS ORDERED: VISCOUS LIDOCAINE 2% 15 ML UDC PO STA (00:18)
[2022-06-21] MEDS ORDERED: DICYCLOMINE 10 MG/5 ML ORAL SYR PO STA (00:18)
[2022-06-21] MEDS ORDERED: MAGNESIUM/ALUMINUM HYDROXIDE/SIMETHICONE 30ML UDC PO STA (00:18)
[2022-06-21] MEDS ORDERED: CHLORDIAZEPOXIDE 25MG CAPSULE PO ONE (00:30)
[2022-06-21 01:32] LABS: *AMPHETAMINES SCREEN URINE NEGATIVE (NEGATIVE); *BARBITURATES SCREEN URINE NEGATIVE (NEGATIVE); *BENZODIAZEPINES SCREEN URINE NEGATIVE (NEGATIVE); *COCAINE SCREEN URINE NEGATIVE (NEGATIVE); CANNABINOID URINE SCREEN NEGATIVE (NEGATIVE); METHADONE URINE SCREEN NEGATIVE (NEGATIVE); OPIATES URINE SCREEN NEGATIVE (NEGATIVE); PHENCYCLIDINE URINE SCREEN NEGATIVE (NEGATIVE)
== END 2022-06-21 06:45 | disposition home or self-care (01) ==
LOC: ER 22:55
DX: T51.0X1A Toxic effect of ethanol, accidental (unintentional), initial encounter (principal); Y92.89 Other specified places as the place of occurrence of the external cause; K85.90 Acute pancreatitis without necrosis or infection, unspecified; F12.10 Cannabis abuse, uncomplicated
CPT/HCPCS: 36415; 80053; 80305; 80320; 85025; 99284; G0480

== ENCOUNTER 2022-07-15 21:29 | Emergency (ER) | payer MEDICAID ==
[~2022-07-15] VITALS: Ht 170.2 cm; Wt 62.1 kg
[2022-07-15 22:07] VITALS: BP 131/82
[2022-07-16 00:36] LABS: BASOPHILS % 1.2 % (0.0-2.0); EOSINOPHILS % 3.6 % (0.0-5.0); HEMATOCRIT. 40.1 % (42.0-52.0); HEMOGLOBIN. 13.6 g/dL (14.0-18.0); LYMPHOCYTES % 24.9 % (20.0-50.0); MEAN CORPUSCULAR HEMOGLOBIN 35.3 pg (28.0-32.0); MEAN CORPUSCULAR VOLUME 104.1 fL (80.0-94.0); MEAN PLATELET VOLUME 8.5 fl (7.4-10.4); MONOCYTES % 12.5 % (2.0-8.0); NEUTROPHILS % 57.8 % (40.0-76.0); PLATELET 83 x1000/uL (130-400); RED BLOOD CELL COUNT 3.86 mill/uL (4.7-6.1); RED CELL DISTRIBUTION WIDTH 13.3 % (11.6-14.6)
[2022-07-16 01:01] LABS: CHLORIDE 108 mEq/L (98-107)
== END 2022-07-16 10:06 | disposition left against medical advice (07) ==
LOC: ER 21:29
DX: Z53.21 Procedure and treatment not carried out due to patient leaving prior to being seen by health care provider (principal)
CPT/HCPCS: 36415; 80053; 85025; 99281; Z7610

== ENCOUNTER 2022-07-24 21:28 | Emergency (ER) | payer MEDICAID ==
[~2022-07-24] VITALS: Ht 157.5 cm; Wt 62.5 kg
[2022-07-24 21:42] VITALS: BP 146/85
== END 2022-07-25 02:27 | disposition left against medical advice (07) ==
LOC: ER 21:28
DX: Z53.21 Procedure and treatment not carried out due to patient leaving prior to being seen by health care provider (principal)
CPT/HCPCS: 99281

== ENCOUNTER 2022-07-27 21:03 | Emergency (ER) | payer MEDICAID ==
[~2022-07-27] VITALS: Ht 157.5 cm; Wt 63.6 kg
[2022-07-27 22:55] LABS: BASOPHILS % 0.8 % (0.0-2.0); EOSINOPHILS % 2.9 % (0.0-5.0); HEMATOCRIT. 41.4 % (42.0-52.0); HEMOGLOBIN. 14.1 g/dL (14.0-18.0); LYMPHOCYTES % 21.3 % (20.0-50.0); MEAN CORPUSCULAR HEMOGLOBIN 35.6 pg (28.0-32.0); MEAN CORPUSCULAR VOLUME 104.4 fL (80.0-94.0); MONOCYTES % 11.4 % (2.0-8.0); NEUTROPHILS % 63.6 % (40.0-76.0); PLATELET 96 x1000/uL (130-400); RED BLOOD CELL COUNT 3.96 mill/uL (4.7-6.1); RED CELL DISTRIBUTION WIDTH 13.1 % (11.6-14.6)
[2022-07-27 22:59] LABS: CHLORIDE 107 mEq/L (98-107)
[2022-07-27 23:07] LABS: ETHANOL BLOOD 230 mg/dL
[2022-07-27] MEDS ORDERED: ACETAMINOPHEN 325MG TABLET PO ONE (23:45)
[2022-07-27] MEDS ORDERED: TOPUD PO (23:49)
[2022-07-28 00:40] VITALS: BP 116/68
== END 2022-07-28 00:40 | disposition home or self-care (01) ==
LOC: ER 21:03
DX: R07.89 Other chest pain (principal); F10.129 Alcohol abuse with intoxication, unspecified; Y90.7 Blood alcohol level of 200-239 mg/100 ml; F12.10 Cannabis abuse, uncomplicated
CPT/HCPCS: 36415; 71045; 73560; 80053; 80320; 83880; 84484; 85025; 93005; 99285; G0480

== ENCOUNTER 2022-08-25 22:30 | Emergency (ER) | payer MEDICAID ==
[~2022-08-25] VITALS: Ht 170.2 cm; Wt 67.0 kg
[~2022-08-25 22:30] MED LIST changes: +TOPUD PO
[2022-08-25 22:35] VITALS: BP 148/110
== END 2022-08-26 07:43 | disposition left against medical advice (07) ==
LOC: ER 22:30
DX: R07.9 Chest pain, unspecified (principal); F12.90 Cannabis use, unspecified, uncomplicated; Z91.013 Allergy to seafood
CPT/HCPCS: 93005; 99283